=== PATIENT | male | born 1995 | race Caucasian/White ===

== ENCOUNTER 2021-10-24 16:15 | Emergency (ER) | payer BC ==
[~2021-10-24] VITALS: Ht 182.9 cm; Wt 105.5 kg
[2021-10-24] MEDS ORDERED: ESCITALOPRAM10 MG PO (16:36)
[2021-10-24 17:39] LABS: BASO # 0.01 K/mm3 (0.02-0.10); EOS # 0.08 K/mm3 (0.04-0.40); EOS % 1.3 % (0.0-4.0); HEMATOCRIT 45.6 % (42.0-52.0); HEMOGLOBIN 15.6 g/dL (13.5-18.0); LYMPH# 1.62 K/mm3 (1.50-4.00); MEAN CELL VOLUME 87 fl (78-100); MEAN CORPUSCULAR HEMOGLOBIN 30 pg (27-31); MEAN CORPUSCULAR HGB CONC 34 g/dL (33-37); MEAN PLATELET VOLUME 9.6 fl (7.4-10.4); MONO # 1.15 K/mm3 (0.20-0.80); NEU # 3.37 K/mm3 (1.40-6.50); PLATELET COUNT 212 K/mm3 (130-400); RED BLOOD COUNT 5.23 M/mm3 (4.20-5.60); RED CELL DISTRIBUTION WIDTH 12.1 % (11.5-14.5); WHITE BLOOD COUNT 6.3 K/mm3 (4.8-10.8)
[2021-10-24 18:10] LABS: POTASSIUM 3.7 mmol/L (3.5-5.1); SODIUM 141 mmol/L (136-145)
[2021-10-24 18:11] LABS: CALCIUM 9.9 mg/dL (8.3-10.5); GLUCOSE 97 mg/dL (75-110)
[2021-10-24 18:13] LABS: CARBON DIOXIDE 26 mmol/L (22-29)
[2021-10-24 18:19] LABS: TROPONIN-I < 0.030 ng/mL (<0.030)
[2021-10-24 18:55] VITALS: BP 156/78
== END 2021-10-24 18:56 | disposition home or self-care (01) ==
LOC: ED 16:15
PROVIDERS: Family Medicine
DX: U07.1 COVID-19 (principal)

== ENCOUNTER 2024-04-15 15:27 | Outpatient (RCR) | payer OTHER ==
[~2024-04-15 15:27] MED LIST: ESCITALOPRAM10 MG PO
== END 2024-05-01 13:16 | disposition home or self-care (01) ==
LOC: PT 15:27
DX: M25.511 Pain in right shoulder (principal)

== ENCOUNTER 2024-08-23 18:02 | Emergency (ER) | payer OTHER ==
[~2024-08-23] VITALS: Wt 105.5 kg
[2024-08-23] MEDS ORDERED: PHENTERMINE HYD30 MG PO (18:15)
[2024-08-23] MEDS ORDERED: CEFDINIR300 MG PO (18:15)
[2024-08-23] MEDS ORDERED: Iohexol 300 - 100 ML VIAL IV ONE (19:04)
[2024-08-23] MEDS ORDERED: NS 100 ML IV SCH (19:05)
[2024-08-23 19:36] LABS: HEMATOCRIT 44.1 % (42.0-52.0); HEMOGLOBIN 15.3 g/dL (13.5-18.0); MEAN CELL VOLUME 86 fl (78-100); MEAN CORPUSCULAR HEMOGLOBIN 30 pg (27-31); MEAN CORPUSCULAR HGB CONC 35 g/dL (33-37); MEAN PLATELET VOLUME 8.8 fl (7.4-10.4); PLATELET COUNT 202 K/mm3 (130-400); RED BLOOD COUNT 5.11 M/mm3 (4.20-5.60); RED CELL DISTRIBUTION WIDTH 11.6 % (11.5-14.5); WHITE BLOOD COUNT 7.4 K/mm3 (4.8-10.8)
[2024-08-23 19:44] LABS: SODIUM 138 mmol/L (136-145)
[2024-08-23 19:45] LABS: CALCIUM 8.5 mg/dL (8.3-10.5)
[2024-08-23] MEDS ORDERED: Ondansetron 4 MG/2 ML VIAL IV ONE (19:45)
[2024-08-23] MEDS ORDERED: Home Ondansetron ODT 4 MG #2 ODT/PACK PO ONE (19:45)
[2024-08-23 19:46] LABS: GLUCOSE 114 mg/dL (75-110); TOTAL PROTEIN 6.6 g/dL (6.4-8.3)
[2024-08-23 19:47] LABS: CARBON DIOXIDE 21 mmol/L (22-29)
[2024-08-23 19:48] LABS: TOTAL BILIRUBIN 0.8 mg/dL (0.2-1.2)
[2024-08-23] MEDS ORDERED: ONDANSETRON HYDR4 MG PO (19:48)
[2024-08-23 19:51] LABS: AST-SGOT 14 U/L (5-34)
[2024-08-23 19:53] LABS: ALT/SGPT 19 U/L (0-55)
[2024-08-23 19:54] LABS: LIPASE 28 U/L (8-78)
[2024-08-23 19:55] LABS: BAND 3 % (0-10); LYMPHOCYTE 12 % (20-51); MONOCYTE 4 % (3-10); NEUTROPHILS 81 % (42-75)
[2024-08-23 20:01] LABS: TROPONIN-I < 0.030 ng/mL (0.00-0.033)
[2024-08-23 20:16] VITALS: BP 134/73
== END 2024-08-23 20:16 | disposition home or self-care (01) ==
LOC: ED 18:02
PROVIDERS: Family Medicine
DX: J10.1 Influenza due to other identified influenza virus with other respiratory manifestations (principal); R10.817 Generalized abdominal tenderness; F17.220 Nicotine dependence, chewing tobacco, uncomplicated
CPT/HCPCS: J2405; Q9967